=== PATIENT | female | born 1990 | race Caucasian/White ===

== ENCOUNTER → 2016-06-19 | Outpatient (CLI) | payer MEDICARE, MEDICAID | LOC: RAD 08:59 | PROVIDERS: ATTEND Internal Medicine Gastroenterology | DX: R13.10 Dysphagia, unspecified (principal) | CPT/HCPCS: 74220 ==

== ENCOUNTER 2016-06-30 15:45 | Day surgery (SDC) | payer MEDICARE, MEDICAID ==
[2016-06-30] MEDS ORDERED: PROMETHAZINE HCL INJ 25 MG/1 ML VIAL ONE (16:23)
[2016-06-30] MEDS ORDERED: NALOXONE HCL INJ/PF 0.4 MG/1 ML SDV ONE (16:23)
[2016-06-30] MEDS ORDERED: FLUMAZENIL INJ 0.5 MG/5 ML VIAL IV ONE (16:24)
[2016-06-30] MEDS ORDERED: EPINEPHRINE INJ 1 MG/10 ML DISP.SYRIN ONE (16:24)
[2016-06-30] MEDS ORDERED: FENTANYL CITRATE INJ/PF 100 MCG/2 ML AMPUL ONE (16:24)
[2016-06-30] MEDS ORDERED: GLUCAGON,HUMAN RECOMB 1 MG INJ ONE (16:25)
[2016-06-30] MEDS: MIDAZOLAM 2 MG/2 ML INJ ONE ×3 (17:00→17:10)
--- NOTE | 2016-06-30 17:24 | Operative Report ---
Operative Report DATE OF SURGERY: 06/30/16 Operative Report: Pre-op diagnosis: Atypical chest pain with GE junction stenoses post- fundoplication Post-op diagnosis: GE junction stenosis. Gastrojejunal tube in place Surgery: Esophagogastroduodenoscopy with balloon dilation Medications: Versed 6mg Fentanyl 100mcg IV push Tissue removed: None Procedure: After informed consent obtained from patient, the throat was sprayed with Hurricane and conscious sedation was achieved. The upper endoscope was inserted into the esophagus under direct vision and advanced into the stomach. The duodenum was entered and examined to the second part. Endoscope was then slowly pulled out of the patient as the mucosa was examined into details. Patient tolerated procedure well. Findings Esophagus: Muscular narrowing at the GE junction presumably from her previous fundoplication. This area was dilated with a 20 [place] balloon with no break in the mucosa Antrum: Normal Body: Gastrostomy tube noted with the distal end beyond the pyloric channel Fundus: Normal Duodenum first part: Normal Duodenum second part: Normal Plan: Continue to take tablets one at a time and consider switching tablets to liquid OPERATION: .
--- NOTE | 2016-06-30 17:25 | PDOC DISCHARGE SUMMARY ---
Discharge Summary (SDC) - Discharge Final Diagnosis: GE junction stricture Date of Surgery: 06/30/16 Condition: Stable Treatment or Instructions: No new medications Discharge Diet: As Tolerated Discharge Activity: Activity As Tolerated Report the Following to Your Physician Immediately: Redness, Swelling, Warmth
[2016-06-30 18:18] VITALS: BP 106/80
== END 2016-06-30 18:20 | disposition home or self-care (01) ==
LOC: END 15:45
PROVIDERS: ATTEND Internal Medicine Gastroenterology
PROC: 0D748ZZ Dilation of Esophagogastric Junction, Via Natural or Artificial Opening Endoscopic (ICD-10-PCS; principal; 2016-06-30 16:00)
DX: K22.2 Esophageal obstruction (principal); R07.9 Chest pain, unspecified; Z93.1 Gastrostomy status; J45.909 Unspecified asthma, uncomplicated; K21.9 Gastro-esophageal reflux disease without esophagitis; E84.9 Cystic fibrosis, unspecified; G43.909 Migraine, unspecified, not intractable, without status migrainosus; Z88.1 Allergy status to other antibiotic agents; Z79.899 Other long term (current) drug therapy; Z88.3 Allergy status to other anti-infective agents; Z79.51 Long term (current) use of inhaled steroids; Z79.1 Long term (current) use of non-steroidal anti-inflammatories (NSAID)
CPT/HCPCS: 43249; C1726; J2250; J3010; J0171; J1610; J2310; J2550; J3490

== ENCOUNTER → 2017-03-05 | Outpatient (CLI) | payer MEDICARE, MEDICAID ==
--- NOTE | 2017-03-05 11:57 | RADIOLOGY REPORT (SQ) ---
EXAM DESCRIPTION: KUB COMPLETED DATE/TIME: 03/05/2017 11:43 am REASON FOR STUDY: CYSTIC FIBROSIS WITH OTHER INTESTINAL MANIFESTATIONS E84.19 CYSTIC FIBROSIS WITH OTHER INTESTINAL MANIFESTATIONS COMPARISON: 09/23/2015. NUMBER OF VIEWS: One view. TECHNIQUE: Supine radiographic image of the abdomen acquired. LIMITATIONS: None. FINDINGS: BOWEL GAS PATTERN: Normal bowel gas pattern. No dilated loops. CALCIFICATIONS: No suspicious calcifications. SOFT TISSUES: No gross mass or suggestion of organomegaly. HARDWARE: Gastrostomy tube. BONES: No acute fracture. No worrisome bone lesions. OTHER: No other significant finding. IMPRESSION: NO RADIOGRAPHIC EVIDENCE FOR ACUTE ABDOMINAL DISEASE. TECHNICAL DOCUMENTATION: JOB ID: [id number] [employer]- All Rights Reserved
== END ==
LOC: OD 11:14
PROVIDERS: ATTEND Internal Medicine Pulmonary Disease
DX: E84.19 Cystic fibrosis with other intestinal manifestations (principal)
CPT/HCPCS: 74000

== ENCOUNTER → 2017-10-12 | Outpatient (CLI) | payer MEDICARE, MEDICAID ==
--- NOTE | 2017-10-12 18:12 | RADIOLOGY REPORT (SQ) ---
EXAM DESCRIPTION: CHEST 2 VIEWS COMPLETED DATE/TIME: 10/12/2017 6:03 pm REASON FOR STUDY: Z98.828 PRESENCE OF OTHER VASCULAR IMPLANTS AND GRAFTS COMPARISON: 11/29/2015 EXAM PARAMETERS: NUMBER OF VIEWS: two views TECHNIQUE: Digital Frontal and Lateral radiographic views of the chest acquired. RADIATION DOSE: NA LIMITATIONS: none FINDINGS: LUNGS AND PLEURA: Chronic interstitial changes are present in both lungs. No acute pulmon angélica infiltrate is appreciated. No pleural effusion is present. MEDIASTINUM AND HILAR STRUCTURES: No masses or contour abnormalities. HEART AND VASCULAR STRUCTURES: Heart normal size. No evidence for failure. BONES: No acute findings. HARDWARE: Injection port on the right. Sternotomy wires. OTHER: No other significant finding. IMPRESSION: Chronic lung changes with no acute cardiopulmonary disease. TECHNICAL DOCUMENTATION: JOB ID: [id number] [employer]- All Rights Reserved Reading location - IP/workstation name: [email or web address]
== END ==
LOC: RAD 17:52
PROVIDERS: ATTEND Internal Medicine Pulmonary Disease
DX: E84.9 Cystic fibrosis, unspecified (principal); Z95.828 Presence of other vascular implants and grafts
CPT/HCPCS: 71046